=== PATIENT | male | born 1945 | race Caucasian/White ===

== ENCOUNTER 2022-06-25 11:12 | Emergency (ER) | payer OTHER, MEDICARE, SELFPAY ==
[2022-06-25] VITALS (8 sets, daily range): BP systolic 97–121; BP diastolic 44–78; PULSE 64–76; RESP 16–20; TEMP 36.7; O2SAT 93–95; BMI 19.2
--- NOTE | 2022-06-25 11:44 | ED_ITS ---
HPI - Extremity Problem General: Chief complaint: Extremity Problem,Nontraumatic Stated complaint: Left side pain, states a blockage Time Seen by Provider: 06/25/22 11:44 History of Present Illness: Mr. Freed is a 77-year-old gentleman who presents to the emergency department due to concern over peripheral arterial disease. He has a longstanding history of known peripheral arterial disease however he had increased discoloration starting approximately 2 weeks ago and had ABIs done. At that time EUSEBIO was abnormal and CTA was recommended. He had CTA performed on 06/14 during a hospital visit and apparently it was not mentioned at that time the extent of his arterial disease. CTA notes occlusion of left internal iliac artery with distal reconstitution. He has multiple areas of at least 50% stenosis. He also appears to have two-vessel flow into the left foot with significant narrowing of the left PT artery. The left peroneal and posterior tibial arteries are occluded proximally. There is disease on the right as well including prior vascular stent which is patent. The patient himself notes intermittent pain however he does not ambulate and therefore cannot correlate with claudication symptoms. He denies other significant changes in health. He is on statin, antiplatelet, and anticoagulation. Overall course of symptoms has persisted. He does have correlating worse chronic wounds on the left though these are being treated by wound care. No other specific changes in health, exacerbating, or alleviating factors identified. Onset (ago): week(s) Pain Consistency: intermittent Location: lower extremity Exacerbating factors: nothing Associated symptoms: Reports other Review of Systems General: Reports: 10 or more systems reviewed and unremarkable except in HPI and below PFSH ED PFSH: Medical History Atherosclerotic heart disease of [place] coronary artery without angina pectoris Cerebral infarction, unspecified Chronic respiratory failure with hypoxia Diabetes type 2, controlled Dysphagia following cerebral infarction Nonexudative age-related macular degeneration, bilateral, stage unspecified Obstructive and reflux uropathy, unspecified Obstructive sleep apnea Other specified disorders of muscle Peripheral vascular disease, unspecified Personal history of COVID-19 Unspecified atrial fibrillation Unspecified hereditary retinal dystrophy Unspecified protein-calorie malnutrition Surgical History Presence of urogenital implants S/P percutaneous endoscopic gastrostomy (PEG) tube placement Physical Exam Const: COMMON NORMALS: alert GENERAL APPEARANCE: cooperative and well developed HENMT: COMMON NORMALS: normocephalic and atraumatic HEAD & SCALP: normocephalic and atraumatic Eye: COMMON NORMALS: conjunctivae normal CONJUNCTIVA: Yes conjunctivae normal SCLERA: sclerae normal Neck/C-Spine: COMMON NORMALS: supple GENERAL: Yes trachea midline Resp: COMMON NORMALS: normal respiratory effort EFFORT & INSPECTION: Yes able to speak in complete sentences Cardio: COMMON NORMALS: regular rate and regular rhythm RATE: regular rate RHYTHM: regular rhythm GI: COMMON NORMALS: Soft to palpation PALPATION: Yes Soft to palpation and No Tenderness to palpation present (GI) PERCUSSION: normal to percussion Extremity: NARRATIVE EXTREMITY EXAM: Right lower extremity some chronic vascular discoloration below the knee anteriorly. Dopplerable signals right PT and DP. Dopplerable signal left DP. Temperature and cap refill appears symmetric bilaterally. Sensory and motor intact bilaterally. GENERAL: Yes normal exam except as noted and No edema Neuro: COMMON NORMALS: moves all extremities SENSORIUM/ORIENTATION: Yes alert and No Orientation impaired Psych: COMMON NORMALS: mental status grossly normal and Normal thought process present THOUGHT PROCESS: Normal thought process present Course ED course: - Patient was seen and evaluated by me at bedside - Patient placed on cardiac monitors, IV access obtained - Initial evaluation notable for exam as above. Exam is not consistent with acute limb ischemia. - Labs personally interpreted by me - Labs notable for no leukocytosis, normocytic anemia. Metabolic panel without acute derangement requiring intervention. Initial lactic acid is mildly elevated. Negative COVID. -Prior imaging reviewed. - Upon serial reexamination after treatment the patient was similar - Based on patient history, evaluation, and testing as interpreted the most likely cause of the patient's condition is peripheral arterial disease with vascular insufficiency resulting in chronic wounds. - The results of ED evaluation were discussed with the patient including plan for admission due to requirement for level of care not available if discharged to prevent significant worsening/deterioration. - Patient requested transfer for further evaluation at [facility] facility. This is reasonable given attempts to have outpatient follow-up have not been successful and patient does have chronic wounds that are at risk for worsening morbidity and mortality. - Accepted to [facility] and transferred in satisfactory condition. Note: Click bubbles or prepopulated louis in note writing are used for assistance with data collection and billing and are inherently more limited than narrative and other text portions of this note. Please use narrative for additional clinical history and defer to narrative/free test for any case of contradictory information. If information appears in only free text or click bubble it should be considered present or absent as reported. Please contact note data analyst report writer for clarifications of clinical information or contradictory information. MDM is a brief summary, contradictory or erroneous seeming information should be clarified and full note should be reviewed. Vital Signs: Vital signs: Vital Signs Temperature 98.0 F 06/25/22 11:21 Pulse Rate 69 06/25/22 18:26 Respiratory Rate 16 06/25/22 18:26 Blood Pressure 113/78 06/25/22 18:26 Pulse Oximetry 93 06/25/22 18:26 Oxygen Delivery Me thod 06/25/22 16:00 MDM - Extremity (Nontraumatic) Medical Decision Making 77-year-old male presenting with concern over worsening peripheral arterial disease. Prior evaluation shows at least moderate disease with areas of total occlusion in the peripheral arterial and iliac system. Patient is on 80 mg atorvastatin, 81 mg aspirin, and Eliquis 5 mg. Despite these medications patient continues to have chronic wounds with poor healing. Physical exam is not consistent with acute limb ischemia and is more consistent with chronic at least moderate disease. Patient is requesting transfer to [facility] and in discussion with prior [facility] physician apparently prior notes reveal that intervention may be appropriate inpatient. We do not have the appropriate contrast material at this time for performance of peripheral vascular intervention. Patient is satisfactory for transfer. Medical Records I reviewed the patient's medical records. Lab Data I reviewed the patient's lab results. : 06/25/22 15:40 06/25/22 15:40 Laboratory Results WBC 8.4 10^3/uL (4.0-10.0) 06/25/22 15:40 RBC 3.99 10^6/uL (4.1-5.3) L 06/25/22 15:40 Hgb 10.7 g/dL (11.7-16.6) L 06/25/22 15:40 Hct 35.0 % (42.0-52.0) L 06/25/22 15:40 MCV 87.7 fl (80-94) 06/25/22 15:40 MCH 26.8 pg (28.0-34.0) L 06/25/22 15:40 MCHC 30.6 g/dL (30.0-36.0) 06/25/22 15:40 RDW 18.1 % (12.1-15.1) H 06/25/22 15:40 Plt Count 363 10^3/cmm (130-400) 06/25/22 15:40 MPV 9.1 fL (7.4-10.4) 06/25/22 15:40 Neut % (Auto) 70.9 % 06/25/22 15:40 Lymph % (Auto) 17.1 % 06/25/22 15:40 [place] % (Auto) 8.1 % 06/25/22 15:40 Eos % (Auto) 2.0 % 06/25/22 15:40 Baso % (Auto) 0.5 % 06/25/22 15:40 Neut # (Auto) 5.94 10^3/uL (1.8-7.7) 06/25/22 15:40 Lymph # (Auto) 1.4 10^3/uL (0.8-4.8) 06/25/22 15:40 [place] # (Auto) 0.7 10^3/uL (0.2-0.9) 06/25/22 15:40 Eos # (Auto) 0.2 10^3/uL (0.0-0.8) 06/25/22 15:40 Baso # (Auto) 0.0 10^3/uL (0.0-0.1) 06/25/22 15:40 Nucleated RBC % (auto) 0 % 06/25/22 15:40 Nucleated RBCs # 0.0 /100WBC 06/25/22 15:40 PT 15.20 SECONDS (12.1-14.9) H 06/25/22 15:40 INR 1.16 (0.8-1.2) 06/25/22 15:40 APTT 34.7 SECONDS (23.9-36.7) 06/25/22 15:40 Sodium 143 mmol/L (136-145) 06/25/22 15:40 Potassium 3.6 mmol/L (3.5-5.1) 06/25/22 15:40 Chloride 102 mmol/L (98-107) 06/25/22 15:40 Carbon Dioxide 31 mmol/L (22-29) H 06/25/22 15:40 Anion Gap 13.6 (5-19) 06/25/22 15:40 BUN 11 mg/dL (8-23) 06/25/22 15:40 Creatinine 0.4 mg/dL (0.7-1.2) L 06/25/22 15:40 GFR Calculation Not Reportable 06/25/22 15:40 Glucose 141 mg/dL (65-115) H 06/25/22 15:40 Calculated Osmolality 298 mOsm/kg (285-295) H 06/25/22 15:40 Lactic Acid 2.3 mmol/L (0.5-2.2) H 06/25/22 15:40 Calcium 9.1 mg/dL (8.5-10.5) 06/25/22 15:40 Total Bilirubin 0.6 mg/dL (0.15-1.2) 06/25/22 15:40 AST 12 U/L (0-40) 06/25/22 15:40 ALT 6 U/L (0-41) 06/25/22 15:40 Alkaline Phosphatase 89 U/L (40-130) 06/25/22 15:40 Total Protein 6.7 g/dL (6.6-8.7) 06/25/22 15:40 Albumin 2.6 g/dL (3.5-5.2) L 06/25/22 15:40 Globulin 4.1 g/dL (1.3-4.6) 06/25/22 15:40 Coronavirus 229E (PCR) Not detected (NOT DETECT) 06/25/22 14:13 SARS-CoV-2 (PCR) Not detected (NOT DETECT) 06/25/22 14:13 [facility] Exam: Ankle brachial index Completed 06/12/2022 Right brachial artery pressure 118 mmHg Right PT 79 with biphasic signal Right DP 86 with biphasic signal Right toe 44 Right EUSEBIO 0.73 Right TBI 0.37 Left brachial on 111 Left PT 57 monophasic signal Left DP 52 monophasic signal Left toe 54 Left EUSEBIO 0.48 Left TBI 0.46 Exam: CTA bilateral lower extremity Completed 06/14/2022 Partial findings-extensive atherosclerotic calcifications are present in aorta without evidence of aneurysm or dissection. Extensive distal calcifications. 50% stenosis and the right proximal external iliac artery. Vascular stent is seen more distally of external iliac artery. Stent is patent. Normal trifurcation of the right popliteal artery. Peroneal artery tapers distally and there is two-vessel flow in the right foot through the right anterior tibial and posterior tibial arteries. Ulcerative appearing plaque is seen at the left common iliac artery resulting in at least 50% stenosis. There is complete occlusion of the left external iliac artery proximally and the vessel reconstitutes as a left common femoral artery. 50% stenosis in mid segment of left superficial femoral artery. Left popliteal artery with long segment intermediate grade stenosis in the mid to distal segments. Left peroneal and posterior tibial arteries are occluded proximally. There is flow in the left anterior tibial artery. The left PT and peroneal arteries reconstitute distally. String-like flow in the left posterior tibial artery into the left foot. There is flow into the left foot through the left anterior tibial artery. Discharge Plan Discharge Patient Disposition: Xfer Short-Term Hosp Clinical Impression: Peripheral arterial occlusive disease, Chronic wound of extremity Condition: Stable Patient Instructions: Peripheral Artery Disease (ED) Coding Level of Care Code ED Field [employer] Sales Manager for [employer] Fwd Exam Comprehensive
--- NOTE | 2022-06-25 15:22 | PC.NURSE ---
Patient awaiting covid results before being transferred to [facility]. Patient given water and call light. No other needs at this time. [facility] staff have taken patients hat back to facility with them, patient kept phone and glasses.
[2022-06-25 15:48] LABS: Basophils % 0.5 %; Eosinophils # 0.2 10^3/uL (0.0-0.8); Hemoglobin 10.7 g/dL (11.7-16.6); Lymphocytes # 1.4 10^3/uL (0.8-4.8); Lymphocytes % 17.1 %; Mean Corpuscular HGB Conc 30.6 g/dL (30.0-36.0); Mean Corpuscular Hemoglobin 26.8 pg (28.0-34.0); Mean Corpuscular Volume 87.7 fl (80-94); Mean Platelet Volume 9.1 fL (7.4-10.4); Monocytes # 0.7 10^3/uL (0.2-0.9); Monocytes % 8.1 %; Neutrophils # 5.94 10^3/uL (1.8-7.7); Neutrophils % 70.9 %; Nucleated Red Blood Cells % 0 %; Platelet Count 363 10^3/cmm (130-400); Red Blood Count 3.99 10^6/uL (4.1-5.3); Red Cell Distribution Width 18.1 % (12.1-15.1); White Blood Count 8.4 10^3/uL (4.0-10.0)
[2022-06-25 15:59] LABS: INR 1.16 (0.8-1.2)
[2022-06-25 16:00] LABS: Partial Thromboplastin Time 34.7 SECONDS (23.9-36.7)
[2022-06-25 16:02] LABS: Adenovirus Not Detected (NOT DETECT); Chlamydia Pneumoniae Not Detected (NOT DETECT); Coronavirus 229E,HKU1,NL63,OC4 Not Detected (NOT DETECT); Human Metapneumovirus Not Detected (NOT DETECT); Human Rhinovirus/Enterovirus Not Detected (NOT DETECT); Influenza A Not Detected (NOT DETECT); Influenza A H1 Not Detected (NOT DETECT); Influenza A H1-2009 Not Detected (NOT DETECT); Influenza A H3 Not Detected (NOT DETECT); Influenza B Not Detected (NOT DETECT); Mycoplasma Pneumoniae Not Detected (NOT DETECT); Parainfluenza Virus Type 1 Not Detected (NOT DETECT); Parainfluenza Virus Type 2 Not Detected (NOT DETECT); Parainfluenza Virus Type 3 Not Detected (NOT DETECT); Parainfluenza Virus Type 4 Not Detected (NOT DETECT); Respiratory Syncytial Virus A Not Detected (NOT DETECT); Respiratory Syncytial Virus B Not Detected (NOT DETECT); SARS-COV-2 Not Detected (NOT DETECT)
[2022-06-25 16:04] LABS: Alanine Aminotransferase 6 U/L (0-41); Albumin Level 2.6 g/dL (3.5-5.2); Alkaline Phosphatase 89 U/L (40-130); Anion Gap 13.6 (5-19); Aspartate Amino Transferase 12 U/L (0-40); Blood Urea Nitrogen 11 mg/dL (8-23); Calcium 9.1 mg/dL (8.5-10.5); Carbon Dioxide 31 mmol/L (22-29); Chloride 102 mmol/L (98-107); Creatinine Clr Calc Pharmacy 72.0552; Globulin 4.1 g/dL (1.3-4.6); Glucose 141 mg/dL (65-115); Osmolality Calculated 298 mOsm/kg (285-295); Potassium 3.6 mmol/L (3.5-5.1); Sodium 143 mmol/L (136-145); Total Bilirubin 0.6 mg/dL (0.15-1.2); Total Protein 6.7 g/dL (6.6-8.7)
[2022-06-25 16:05] LABS: Lactic Sepsis W/Reflex 2.3 mmol/L (0.5-2.2)
--- NOTE | 2022-06-25 17:27 | PC.NURSE ---
patient given sandwich and coffee no other needs at this time.
[2022-06-25 17:32] LABS: Reflex Lactate Order REFLEX LACTIC ORDERD
--- NOTE | 2022-06-25 17:40 | PC.NURSE ---
Report called to [facility], awaiting EMS transportation. Patient resting quietly, no needs at this time.
== END 2022-06-25 18:28 | disposition short-term general hospital (02) ==
PROVIDERS: Emergency Provider Emergency Medicine
DX: I77.9 Disorder of arteries and arterioles, unspecified (principal); T14.8XXA Other injury of unspecified body region, initial encounter; X58.XXXA Exposure to other specified factors, initial encounter; Z20.822 Contact with and (suspected) exposure to COVID-19; I25.10 Atherosclerotic heart disease of native coronary artery without angina pectoris; E11.9 Type 2 diabetes mellitus without complications
CPT/HCPCS: 80053; 83605; 85025; 85610; 85730; 87635; 99285